=== PATIENT | female | born 1985 | race Caucasian/White ===

== ENCOUNTER 2017-04-01 23:47 | Emergency (ER) | payer OTHER ==
[~2017-04-01] VITALS: Ht 147.3 cm; Wt 83.5 kg
--- NOTE | 2017-04-02 00:07 | PHYS DOC ---
Adult General Chief Complaint Chief Complaint: VAGINAL BLEEDING HPI HPI Patient is a 31 year old female who presents with right lower pelvic pain with vaginal bleeding. She is approx 6 weeks ; no care yet. G6, P3, LC3 with prior right ectopic (treated with MTX) and miscarriages. She states she drove here recently from [facility]. She is O negative. Sunday the pain and bleeding started but the pain worsened tonight approx 2 hours prior to arrival. Pain is more right sided. Review of Systems Review of Systems Constitutional: Denies fever or chills Eyes: Denies change in visual acuity, redness, or eye pain HENT: Denies nasal congestion or sore throat Respiratory: Denies cough or shortness of breath Cardiovascular: No chest pain GI: Denies abdominal pain, nausea, vomiting, bloody stools or diarrhea : Denies dysuria or hematuria; see HPI Musculoskeletal: Denies back pain or joint pain Integument: Denies rash or skin lesions Neurologic: Denies headache, focal weakness or sensory changes Current Medications Current Medications Current Medications Medications (Trade) Dose Ordered Sig/Lizzy Start Time Stop Time Status Last Admin Dose Admin Sodium Chloride (Normal Saline Flush) 10 ml QSHIFT PRN 04/02/17 00:15 UNV Physical Exam Physical Exam Constitutional: Well developed, well nourished, no acute distress, non-toxic appearance. HENT: Normocephalic, atraumatic, bilateral external ears normal, oropharynx moist, no oral exudates, nose normal. Eyes: PERRLA, EOMI, conjunctiva normal, no discharge. Neck: Normal range of motion, no tenderness, supple, no stridor. Cardiovascular:Heart rate regular rhythm, no murmur Lungs & Thorax: Bilateral breath sounds clear to auscultation Abdomen: Bowel sounds normal, soft, no tenderness, no masses, no pulsatile masses. : Heel Attacher Wood present. External genitalia normal. No lesions. Os closed with minimal blood in vault. No adnexal masses noted. Skin: Warm, dry, no erythema, no rash. Back: No tenderness, no CVA tenderness. Extremities: No tenderness, no cyanosis, no clubbing, ROM intact, no edema. Neurologic: Alert and oriented X 3, normal motor function, normal sensory function, no focal deficits noted. Psychologic: Affect normal, judgement normal, mood normal. Current Patient Data Vital Signs Vital Signs Date Time Temp Pulse Resp B/P (MAP) Pulse Ox O2 Delivery O2 Flow Rate FiO2 04/02/17 00:28 98.5 85 17 99 Radiology/Procedures Radiology/Procedures US report per technologist: Course & Med Decision Making Course & Med Decision Making Pertinent Labs and Imaging studies reviewed. (See chart for details) Evaluated patient. Blood type O negative; Rhogam ordered. US ordered and awaiting study. Serum quant 4753. At 0225 AM US printing technician informed me that patient has a right ruptured ectopic with a yolk sac in right adnexa and an intrauterine gestational sac with sac but no heart beat heber at 7 weeks 6 days. Patient and family updated. Called [place] [facility] for transfer. NPO. Spoke w Dr Alvarez at 0234 AM and accepted patient in transfer emergently. Requests patient sent to [place] [facility]. BP 165/95, P 89, sat 100%, RR 20 at transfer. Patient understands will need emergent surgery. Blood bank here does NOT have Rhogam ready prior to transfer. WILL NEED RHOGAM UPON ARRIVAL TO [place]. Dragon Disclaimer Dragon Disclaimer This chart was dictated in whole or in part using Voice Recognition software in a busy, high-work load, and often noisy Emergency Department environment. It may contain unintended and wholly unrecognized errors or omissions. Departure Departure: Impression: Primary Impression: Ruptured right tubal ectopic causing hemoperitoneum Disposition: XFER OTHER ([facility]) Condition: STABLE Referrals: NON,STAFF (PCP) UNRULY STORY MD Apr 02, 2017 00:07
[2017-04-02] MEDS ORDERED: 0.9 % SODIUM CHLORIDE 10 ML DISP.SYRIN. IV PRN (00:15)
[2017-04-02 00:49] LABS: BASO # 0.1 x10^3/uL (0.0-0.2); BASO % 1 % (0-3); EOS # 0.2 x10^3/uL (0.0-0.7); EOS % 1 % (0-3); HEMATOCRIT 34.7 % (36.0-47.0); HEMOGLOBIN 11.5 g/dL (12.0-15.5); LYMPH # 2.9 x10^3/uL (1.0-4.8); LYMPH % 26 % (24-48); MEAN CORPUSCULAR HEMOGLOBIN 29 pg (25-35); MEAN CORPUSCULAR HGB CONC 33 g/dL (31-37); MEAN CORPUSCULAR VOLUME 86 fL (79-100); MONO # 0.8 x10^3/uL (0.0-1.1); MONO % 7 % (0-9); NEUT # 7.4 x10^3uL (1.8-7.7); NEUT % 65 % (31-73); PLATELET COUNT 277 x10^3/uL (140-400); RED BLOOD COUNT 4.01 x10^6/uL (3.50-5.40); RED CELL DISTRIBUTION WIDTH 13.8 % (11.5-14.5); WHITE BLOOD COUNT 11.4 x10^3/uL (4.0-11.0)
[2017-04-02 01:27] LABS: BILIRUBIN,URINE NEG (NEG); CLARITY,URINE CLEAR; COLOR,URINE YELLOW; GLUCOSE,URINE NEG (NEG); NITRITE,URINE NEG (NEG); RBC,URINE OCC /HPF (0-2); UROBILINOGEN,URINE 0.2 mg/dL (0.2 mg/dL); WBC,URINE OCC /HPF (0-4)
[2017-04-02 01:28] LABS: BACTERIA,URINE 0 /HPF (0-FEW); SQUAMOUS EPITHELIAL CELL,UR OCC /LPF
[2017-04-02] MEDS ORDERED: ONDANSETRON PF 4 MG/2 ML VIAL. IV ONE (01:45)
[2017-04-02] MEDS ORDERED: fentaNYL PF 100 MCG/2 ML VIAL ONE (02:51)
[2017-04-02 03:02] VITALS: BP 165/95
--- NOTE | 2017-04-02 03:08 | RAD ---
INDICATION: RT PELVIC PAIN, HX OF RT ECTOPIC COMPARISON: None. TECHNIQUE: Grayscale and color ultrasound images uterus and adnexa. Transabdominal and transvaginal images obtained. FINDINGS: Uterus: 98 x 61 x 41 mm. Within the uterus there is a gestational sac identified as well as a pole with a crown-rump length of 15 mm. No definite heartbeat at this time. Right Ovary: 54 x 44 x 33 mm. Adjacent to the right ovary there is a irregular shaped cystic structure identified with a suspected yolk sac within. There is some complex free fluid seen in the pelvis. Left ovary is not seen IMPRESSION: 1. Intrauterine gestational sac is identified with a pole correlating with 7 weeks and 6 days gestation with no heartbeat seen at this time. This raises the concern for early failure. 2. Within the right adnexa there is a irregular shaped cystic structure with a circular structure within which could be secondary to a yolk sac. There is also complex fluid within the pelvis. Given this constellation of findings is possible that this is secondary to a right adnexal ectopic with surrounding blood from rupture. Report called to the ER at 2:59 AM on date of exam Electronically signed by: Fuad Coronel MD (04/02/2017 3:05 AM) [facility]
[2017-04-02] MEDS ORDERED: fentaNYL PF 100 MCG/2 ML VIAL IV ONE (03:30)
[2017-04-03 16:11] LABS: CHLAMYDIA PROBE Negative (Negative)
== END 2017-04-02 03:04 | disposition short-term general hospital (02) ==
LOC: ER 23:47
DX: O00.10 Tubal pregnancy without intrauterine pregnancy (principal); K66.1 Hemoperitoneum; R10.2 Pelvic and perineal pain; Z3A.01 Less than 8 weeks gestation of pregnancy
CPT/HCPCS: 36415; 76801; 76817; 81001; 81025; 84702; 85027; 86900; 86901; 87491; 87591; 96374; 99285; J2405; J3010